=== PATIENT | female | born 1980 | race Asian ===

== ENCOUNTER 2017-02-13 09:56 | Observation (INO) | payer OTHER ==
[~2017-02-13] VITALS: Ht 162 cm; Wt 68.9 kg
[2017-02-13] MEDS ORDERED: PREN1TAB80 PO (10:37)
[2017-02-13 10:49] VITALS: BP 126/84
== END 2017-02-13 14:30 | disposition home or self-care (01) ==
LOC: 4S 09:56
PROVIDERS: ADMIT Obstetrics & Gynecology; ATTEND Obstetrics & Gynecology
DX: Z34.93 Encounter for supervision of normal pregnancy, unspecified, third trimester (principal); Z3A.39 39 weeks gestation of pregnancy
CPT/HCPCS: 36415; 59025; 76805; 89060; G0378

== ENCOUNTER 2017-02-22 20:17 | Inpatient (IN) | payer OTHER ==
[~2017-02-22] VITALS: Ht 162.6 cm; Wt 68.9 kg
[~2017-02-22 20:17] MED LIST: PREN1TAB80 PO
[2017-02-22 21:08] VITALS: BP 106/62
[2017-02-22] MEDS ORDERED: OXYTOCIN 30 UNITS/LACT RINGERS 500 ML IV ONE (21:27)
[2017-02-22] MEDS ORDERED: RINGERS SOLUTION,LACTATED 1,000 ML IV PRN (21:27)
[2017-02-22] MEDS ORDERED: CITRIC ACID/SODIUM CITRATE 30 ML SOLUTION UDCUP PO PRN (21:30)
[2017-02-22] MEDS ORDERED: FentaNYL CITRATE-PF 100 MCG/2 ML VIAL IVP PRN (21:30)
[2017-02-22] MEDS ORDERED: METOCLOPRAMIDE HCL 5 MG/ML 2 ML VIAL IVP PRN (21:30)
[2017-02-22] MEDS ORDERED: DINOPROSTONE 10 MG VAGINAL SUPPOSITORY VG ONE (22:00)
[2017-02-22 22:07] LABS: BASOPHILS # (AUTO) 0.01 K/uL (0.00-0.20); BASOPHILS % (AUTO) 0.1 % (0.0-2.0); EOSINOPHILS # (AUTO) 0.03 K/uL (0.00-0.70); EOSINOPHILS % (AUTO) 0.33 % (1.0-6.0); HEMATOCRIT 34.6 % (36-46); HEMOGLOBIN 11.8 g/dL (12.0-16.0); LYMPHOCYTES # (AUTO) 1.3 K/uL (1.0-4.8); LYMPHOCYTES % (AUTO) 15.2 % (22.0-44.0); MEAN CORPUSCULAR HEMOGLOBIN 31.2 pg (26.0-34.0); MEAN CORPUSCULAR VOLUME 92 fL (80-100); MONOCYTES # (AUTO) 0.6 K/uL (0.1-1.0); MONOCYTES % (AUTO) 7.5 % (2.0-9.0); NEUTROPHILS # (AUTO) 6.5 K/uL (1.8-7.7); NEUTROPHILS % (AUTO) 76.9 % (40.0-70.0); RED BLOOD CELL COUNT(AUTO) 3.77 MIL/uL (4.00-5.20); RED CELL DISTRIBUTION WIDTH 14.6 % (11.5-14.5); WHITE BLOOD COUNT (AUTO) 8.5 K/uL (4.5-11.0)
[2017-02-22] MEDS ORDERED: DSSL PO (22:26)
[2017-02-22] MEDS ORDERED: ERGO2000 PO (22:26)
[2017-02-22] MEDS ORDERED: CALC-51 PO (22:26)
[2017-02-22] MEDS ORDERED: FERR134T2 PO (22:26)
[2017-02-22] MEDS: RINGERS SOLUTION,LACTATED 1,000 ML IV SCH (22:52)
[2017-02-23] MEDS: RINGERS SOLUTION,LACTATED 1,000 ML IV SCH ×2 (05:43→12:14)
[2017-02-23] MEDS ORDERED: OXYGEN THERAPY IH SCH (08:00)
[2017-02-23] MEDS ORDERED: -PHARMACY NOTE- MISC ONE ×2 (09:30)
[2017-02-23] MEDS ORDERED: OXYTOCIN 30 UNITS/LACT RINGERS 500 ML IV PRN (10:15)
[2017-02-23] MEDS ORDERED: FentaNYL/BUPIV 0.125%/NS/PF 200 ML ED ONE (11:17)
[2017-02-23] MEDS ORDERED: BUPIVACAINE HCL/PF 0.25% 30 ML VIAL ONE (11:19)
[2017-02-23] MEDS ORDERED: FentaNYL/BUPIV 0.125%/NS/PF 200 ML ED PRN (11:51)
[2017-02-23] MEDS ORDERED: DiphenhydrAMINE HCL 50 MG/ML VIAL IVP PRN (12:00)
[2017-02-23] MEDS ORDERED: ONDANSETRON HCL 4 MG/2 ML VIAL IVP PRN (12:00)
[2017-02-23] MEDS ORDERED: LIDOCAINE HCL/PF 1% 30 ML VIAL ONE (17:38)
[2017-02-23] MEDS ORDERED: POVIDONE-IODINE 10% 240 ML SOLUTION TP ONE (17:48)
[2017-02-23] MEDS ORDERED: CeFAZolin 2 GM/DEXTROSE 50 ML IV ONE (18:13)
[2017-02-23] MEDS: CeFAZolin 2 GM/DEXTROSE 50 ML IV SCH (18:17)
[2017-02-23] MEDS ORDERED: OxyCODONE HCL/ACETAMINOPHEN 5-325 MG TABLET PO PRN ×2 (19:00)
[2017-02-23] MEDS ORDERED: LANOLIN 7 GM OINTMENT TP PRN (19:00)
[2017-02-23] MEDS ORDERED: IBUPROFEN 600 MG TABLET PO PRN (19:00)
[2017-02-23] MEDS: MetroNIDAZOLE 500 MG/NACL 100 ML IV SCH (21:22)
[2017-02-23] MEDS: BENZOCAINE 20%/MENTHOL 56 GM SPRAY CANISTER TP PRN (21:22)
[2017-02-23] MEDS: GLYCERIN/WITCH HAZEL LEAF 40 PADS JAR TP PRN (21:22)
[2017-02-23 22:23] LABS: EOSINOPHILS % (AUTO) 0 % (1.0-6.0); HEMATOCRIT 29.2 % (36-46); LYMPHOCYTES # (AUTO) 0.7 K/uL (1.0-4.8); LYMPHOCYTES % (AUTO) 3.6 % (22.0-44.0); MEAN CORPUSCULAR HEMOGLOBIN 30.8 pg (26.0-34.0); MEAN CORPUSCULAR HGB CONC 34.1 G/dL (31.0-37.0); MEAN CORPUSCULAR VOLUME 90 fL (80-100); MONOCYTES # (AUTO) 0.8 K/uL (0.1-1.0); MONOCYTES % (AUTO) 4.3 % (2.0-9.0); NEUTROPHILS # (AUTO) 17.1 K/uL (1.8-7.7); RED BLOOD CELL COUNT(AUTO) 3.24 MIL/uL (4.00-5.20); RED CELL DISTRIBUTION WIDTH 14.6 % (11.5-14.5); WHITE BLOOD COUNT (AUTO) 18.6 K/uL (4.5-11.0)
[2017-02-23 22:24] LABS: NEUTROPHILS % (AUTO) 92.1 % (40.0-70.0)
[2017-02-24] MEDS: RINGERS SOLUTION,LACTATED 1,000 ML IV SCH ×2 (00:13→09:00)
[2017-02-24] MEDS: CeFAZolin 2 GM/DEXTROSE 50 ML IV SCH (02:24)
[2017-02-24] MEDS: MAGNESIUM HYDROXIDE SUSPENSION 30 ML UDCUP PO PRN ×2 (04:09→08:15)
[2017-02-24 07:06] LABS: EOSINOPHILS % (AUTO) 0.1 % (1.0-6.0); HEMATOCRIT 27.3 % (36-46); HEMOGLOBIN 9.2 g/dL (12.0-16.0); LYMPHOCYTES # (AUTO) 0.9 K/uL (1.0-4.8); LYMPHOCYTES % (AUTO) 5.2 % (22.0-44.0); MEAN CORPUSCULAR HEMOGLOBIN 30.9 pg (26.0-34.0); MEAN CORPUSCULAR HGB CONC 33.8 G/dL (31.0-37.0); MEAN CORPUSCULAR VOLUME 92 fL (80-100); MONOCYTES # (AUTO) 0.7 K/uL (0.1-1.0); MONOCYTES % (AUTO) 3.8 % (2.0-9.0); NEUTROPHILS # (AUTO) 16.3 K/uL (1.8-7.7); NEUTROPHILS % (AUTO) 90.9 % (40.0-70.0); RED BLOOD CELL COUNT(AUTO) 2.98 MIL/uL (4.00-5.20); RED CELL DISTRIBUTION WIDTH 14.5 % (11.5-14.5); WHITE BLOOD COUNT (AUTO) 17.9 K/uL (4.5-11.0)
[2017-02-24] MEDS ORDERED: PHENYLEPHRINE/SHK LV/MIN OIL/PET 57 GM OINTMENT TP SCH (09:00)
[2017-02-24] MEDS: MetroNIDAZOLE 500 MG/NACL 100 ML IV SCH (09:12)
[2017-02-24] MEDS ORDERED: DSS100 PO (16:45)
[2017-02-24] MEDS ORDERED: IBUP-2070 PO (16:46)
[2017-02-24 17:00] LABS: EOSINOPHILS % (AUTO) 0 % (1.0-6.0); HEMATOCRIT 22.5 % (36-46); HEMOGLOBIN 7.6 g/dL (12.0-16.0); LYMPHOCYTES # (AUTO) 1.2 K/uL (1.0-4.8); LYMPHOCYTES % (AUTO) 8.2 % (22.0-44.0); MEAN CORPUSCULAR HEMOGLOBIN 30.7 pg (26.0-34.0); MEAN CORPUSCULAR VOLUME 90 fL (80-100); MONOCYTES # (AUTO) 0.8 K/uL (0.1-1.0); MONOCYTES % (AUTO) 5.9 % (2.0-9.0); NEUTROPHILS # (AUTO) 12.2 K/uL (1.8-7.7); RED BLOOD CELL COUNT(AUTO) 2.49 MIL/uL (4.00-5.20); RED CELL DISTRIBUTION WIDTH 14.8 % (11.5-14.5); WHITE BLOOD COUNT (AUTO) 14.2 K/uL (4.5-11.0)
[2017-02-24 17:01] LABS: NEUTROPHILS % (AUTO) 85.9 % (40.0-70.0)
[2017-02-24 17:18] LABS: RBC MORPHOLOGY COMMENT NORMAL RBC MORPH
[2017-02-24] MEDS: BENZOCAINE 20%/MENTHOL 56 GM SPRAY CANISTER TP PRN (17:46)
[2017-02-24] MEDS: GLYCERIN/WITCH HAZEL LEAF 40 PADS JAR TP PRN (17:47)
== END 2017-02-24 16:10 | disposition home or self-care (01) | DRG 774 ==
LOC: OBSVTOIN 20:17 → 4S 20:17
PROVIDERS: ADMIT Obstetrics & Gynecology; ATTEND Obstetrics & Gynecology
PROC: 10E0XZZ Delivery of Products of Conception, External Approach (ICD-10-PCS; principal; 2017-02-23)
PROC: 0DQR0ZZ Repair Anal Sphincter, Open Approach (ICD-10-PCS; 2017-02-23)
PROC: 0W8NXZZ Division of Female Perineum, External Approach (ICD-10-PCS; 2017-02-23)
PROC: 10907ZC Drainage of Amniotic Fluid, Therapeutic from Products of Conception, Via Natural or Artificial Opening (ICD-10-PCS; 2017-02-23)
PROC: 3E0R3CZ (ICD-10-PCS; 2017-02-23)
PROC: 00HU33Z Insertion of Infusion Device into Spinal Canal, Percutaneous Approach (ICD-10-PCS; 2017-02-23)
DX: O48.0 Post-term pregnancy (principal); O72.1 Other immediate postpartum hemorrhage; O70.20 Third degree perineal laceration during delivery, unspecified; Z3A.40 40 weeks gestation of pregnancy; Z37.0 Single live birth
CPT/HCPCS: J0690; J2590; J3490; J7120